=== PATIENT | male | born 1980 | race Caucasian/White ===

== ENCOUNTER 2020-06-06 17:16 | Inpatient (IN) | payer OTHER ==
--- OUTSIDE RECORDS SUMMARY | 2020-06-06 17:22 | XMS ---
:1980 Author Organization [facility] Care Team Providers Name Role Phone Zainab Lewis Unavailable Unavailable Zainab Lewis Unavailable Unavailable Zainab Lewis Unavailable Unavailable Ed King MD Unavailable Unavailable Ed King MD Unavailable Unavailable Ed King MD Unavailable Unavailable Ed King MD Unavailable Unavailable MamFrancine cazares MD Unavailable Unavailable Mama K Unavailable Unavailable Mama K Unavailable Unavailable Mama K Unavailable Unavailable Other Unavailable Unavailable MD Aroldo Unavailable Unavailable MD Aroldo Unavailable Unavailable MD Aroldo Unavailable Unavailable MD Macy Unavailable Unavailable MD Macy Unavailable Unavailable MD Macy Unavailable Unavailable MD Macy Unavailable Unavailable MD Macy Unavailable Unavailable Re-disclosure Warning The records that you are about to access may contain information from federally- assisted alcohol or drug abuse programs. If such information is present, then the following federally mandated warning applies: This information has been disclosed to you from records protected by federal confidentiality rules (42 CFR part 2). The federal rules prohibit you from making any further disclosure of this information unless further disclosure is expressly permitted by the written consent of the person to whom it pertains or as otherwise permitted by 42 CFR part 2. A general authorization for the release of medical or other information is NOT sufficient for this purpose. The Federal rules restrict any use of the information to criminally investigate or prosecute any alcohol or drug abuse patient.The records that you are about to access may contain highly sensitive health information, the redisclosure of which is protected by Article 27-F of the [facility] Public Health law. If you continue you may haveaccess to information: Regarding HIV / AIDS; Provided by facilities licensed or operated by the [facility] Office of Mental Health; or Provided by the [facility] Office for People With Developmental Disabilities. If such information is present, then the following [facility] mandated warning applies: This information has been disclosed to you from confidential records which are protected by state law. State law prohibits you from making any further disclosure of this information without the specific written consent of the person to whom it pertains, or as otherwise permitted by law. Any unauthorized further disclosure in violation of state law may result in a fine or long term sentence or both. A general authorization for the release of medical or other information is NOT sufficient authorization for further disclosure. Encounters Encounter Providers Location Date Indications Data Source(s ) Emergency Attender: Zainab ICU-EMERG 04/29/2020 OD [facility] [place] Isaiahder: 04:40:00 PM Hospi jose e Francine Xavier EDT - MDAttender: Doctor 04/30/2020 Other 05:57:00 AM EDT OD Patient discharged. Emergency Attender: Melia ICU-EMERG 10/26/2019 POSS PINK [facility] [place] 12:14:00 PM EST - EYE Damari e MDAttender: Doctor 10/26/2019 Hospit al Other 12:41:00 PM EST POSS PINK EYE Patient discharged. Emergency Attender: Ed ICU-EMERG 10/05/2019 HEADACHE/BUMPS [facility] [place] MDAttender: 11:28:00 PM EST BEHIND HEAD R ochelle Doctor Other - 10/06/2019 Hospital 02:41:00 AM EST HEADACHE/BUMPS BEHIND HEAD Patient discharged. Emergency Attender: Francine ICU-EMERG 09/04/2019 THOAT PAIN / [facility] [place] MDAttender: 06:51:00 PM EST - COUGH X4DAYS Thelma Chris Cavazos 09/04/2019 Hospital MDAttender: Doctor 08:58:00 PM EST Other THOAT PAIN / COUGH X4DAYS Patient discharged. Medications Medication Brand Start Product Dose Route Administrative Pharmacy [facility] Indications Reaction Description Data Name Date Form Instructions Instructions Source(s) Erythromyci erythr [id number] complet Eryt hromycin [facility] n 0.005 omycin 2019 {darshana} ed , Ophthalmic H ealth MG/MG 0.5% 12:25: System Ophthalmic ophtha 15 PM Ointment lmic EST erythromyci ointme n 0.5% nt ophthalmic ointment For the eye. Insurance Providers Payer name Policy type / Policy ID Covered Covered alliance party's Policy Plan Coverage type alliance party ID relationship to [place] Information sauceda SELF PAY SP INSURANCE COVID19 [facility] Commercial [id number] UNINS TST TRT FND COVID19 [facility] Commercial 1 UNINS TST TRT FND Self Pay Self Pay [id number] Problems, Conditions, and Diagnoses Code Display Name Description Problem Type Effective Data Dates Source(s) TOOK TO MUUCH TOOK TO MUUCH Diagnosis 04/29/2020 [facility] - [facility] w MEDICATION/NAUSEA MEDICATION/NAUSEA 04:40:00 PM [facility] F19.10 Other psychoactive Other psychoactive Diagnosis 0 [facility] - New substance abuse, substance abuse, 04:39:00 PM R ochelle uncomplicated uncomplicated EDT Hospital OD OD Diagnosis 04/29/2020 [facility] - New 04:39:00 PM [facility] Z03.818 Encounter for Encounter for Diagnosis 04/29/2020 [facility] - Ne w observation for observation for 04:39:00 PM Armand helle suspected exposure suspected exposure EDT Hospital to other biological to other biological agents ruled out agent, ruled out H10.9 Unspecified Conjunctivitis Diagnosis 10/26/2019 [facility] - New conjunctivitis 12:14:00 PM [facility] POSS PINK EYE POSS PINK EYE Diagnosis 10/26/2019 [facility]HS - Ne w 12:14:00 PM [facility] G43.909 Migraine, Migraine without Diagnosis 10/05/2019 [facility] - Ne w unspecified, not status migrainosus, 11:28:00 P M Thelma intractable, not intractable EST Hospita l without status migrainosus R59.0 Localized enlarged Localized enlarged Diagnosis 0 [facility] - New lymph nodes lymph nodes 11:28:00 PM [facility] HEADACHE/BUMPS HEADACHE/BUMPS Diagnosis 10/05/2019 [facility] - New BEHIND HEAD BEHIND HEAD 11:28:00 PM [facility] F90.9 Attention-deficit Attention deficit Diagnosis 10/05/2019 [facility] - New hyperactivity hyperactivity 11:28:00 PM [facility] e disorder, disorder (ADHD) EST [facility] unspecified type THOAT PAIN / COUGH THOAT PAIN / COUGH Diagnosis 0 [facility] - New X4DAYS X4DAYS 06:51:00 PM [facility] Surgeries/Procedures Procedure Description Date Indications Data Source(s) Standard chest X-ray 04/29/[address] [facility] Health (procedure) 05:57:00 PM System EDT - 04/29/2020 05:57:00 PM EDT [facility] 05:06:38 PM System EDT - 04/29/2020 05:51:00 PM EDT Results ID Date Data Source [id number] 04/30/2020 06:57:45 AM EDT [facility] Name Value Range Interpretation Description Data Sup porting Code Source(s) Document(s ) Leukocytes [#/volume] 11.9 Above high WBC Count [facility] in Unspecified specimen {10^3_ normal Health by Automated count uL} System Erythrocytes [#/volume] 4.86 Normal (applies RBC Count [facility] in Blood by Automated {10^6_ to non-numeric Hea lth count uL} results) System Hematocrit [Volume 45.2 % Normal (applies Hematocrit [facility] Fraction] of Blood to non-numeric Health results) System Hemoglobin 15.1 Normal (applies Hemoglobin [facility] [Mass/volume] in Blood {gm/dL to non-numeric He alth } results) System Erythrocyte mean 93.0 Normal (applies MCV [facility] corpuscular volume fl to non-numeric Health [Entitic volume] by results) System Automated count ImmaturePlateletFractio 5.90 % Normal (applies Immature [facility] n to non-numeric Platelet Health results) Fraction System Erythrocyte mean 33.4 Normal (applies MCHC [facility] corpuscular hemoglobin {gm/dL to non-numeric He alth concentration } results) System [Mass/volume] by Automated count Erythrocyte 12.4 % Normal (applies RDW-CV [facility] distribution width to non-numeric Health [Entitic volume] by results) System Automated count Erythrocyte mean 31.1 Above high MCH [facility] corpuscular hemoglobin pg normal Health [Entitic mass] by System Automated count Platelets [#/volume] in 190 Normal (applies Platelet [facility] Plasma by Automated {10^3_ to non-numeric Count Healt h count uL} results) System Rare clumping seen. Rare giant platelets . NRBC# 0.00 {10^3_uL} Normal (applies NRBC # [facility] to non-numeric Health System results) Nucleated 0.0 {/100_WBC} Normal (applies NRBC % [facility] erythrocytes to non-numeric Health Syste m [#/volume] in Body results) fluid Neutrophils/100 83.2 % Above high Neutrophil % [facility] leukocytes in normal Health System Blood by Automated count Platelet mean 11.2 fl Normal (applies MPV [facility] volume [Entitic to non-numeric Health Sy stem volume] in Blood results) by Automated count Monocytes/100 4.3 % Normal (applies Monocyte % [facility] leukocytes in to non-numeric Health Syst em Blood results) Neutrophils 9.9 {10^3_uL} Above high Neutrophil # [facility] [#/volume] in Body normal Health Syst em fluid Lymphocytes 11.0 % Below low normal Lymphocyte % [facility] [#/volume] in Health System Blood by Automated count Lymphocyte percent 1.3 {10^3_uL} Normal (applies Lymphocyte # [facility] differential count to non-numeric Health System (procedure) results) Eosinophils 0.06 {10^3_uL} Normal (applies Eosinophil # [facility] [#/volume] in to non-numeric Health Syst em Blood results) Basophils 0.04 {10^3_uL} Normal (applies Basophil # [facility] [#/volume] in to non-numeric Health Syst em Blood by Automated results) count Monocytes 0.5 {10^3_uL} Normal (applies Monocyte # [facility] [#/volume] in to non-numeric Health Syst em Blood by Manual results) count Eosinophils/100 0.5 % Normal (applies Eosinophil % Ulices liz leukocytes in to non-numeric Health Syst em Unspecified results) specimen Basophils/100 0.3 % Normal (applies Basophil % [facility] leukocytes in to non-numeric Health Syst em Unspecified results) specimen by Manual count ImmatureGranulocyt 0.7 % Normal (applies Immature Ulices liz es% to non-numeric Granulocytes % Health Sys tem results) ImmatureGranulocyt 0.08 {10^3_uL} Normal (applies Immature [facility] es# to non-numeric Granulocytes # Health Sys tem results) ID Date Data Source [id number] 04/30/2020 06:57:45 AM EDT [facility] Name Value Range Interpretation Description Data Sup porting Code Source(s) Document(s ) 59109-0 NEGATIVE Testing Normal (applies COVID-19.. [facility] was performed to non-numeric Health Syst em using Nolan ID results) NOW COVID-19, an isothermal nucleic acid amplification technology for the qualitative detection of nucleic acid from the SARS-CoV-2 viral RNA in respiratory specimens. The ID NOW COVID-19 test has been approved by the Food and Drug Administration (FDA) under an Emergency Use Authorization for use by authorized laboratories. Reference Range: NEGATIVE . ID Date Data Source [id number] 04/30/2020 06:57:45 AM EDT [facility] Name Value Range Interpretation Description Data Sup porting Code Source(s) Document(s ) Acetylsalicylate < 4 Normal (applies Salicylate [facility] [Mass/volume] in to non-numeric Level, Serum Healt h Serum or Plasma results) System ID Date Data Source [id number] 04/30/2020 06:57:45 AM EDT [facility] Name Value Range Interpretation Description Data Sup porting Code Source(s) Document(s ) Acetaminophen < 10 Normal (applies Acetaminophen [facility] [Mass/volume] in to non-numeric Level, Serum Healt h Serum or Plasma results) System REFERENCE RANGE: 10-30 Therapeutic >100 Toxic ID Date Data Source [id number] 04/30/2020 06:57:45 AM EDT [facility] Name Value Range Interpretation Description Data Sup porting Code Source(s) Document(s ) Magnesium 1.5 Normal (applies Magnesium, [facility] [Mass/volume] {mEq/L} to non-numeric Serum Health Syst em in Serum or results) Plasma ID Date Data Source [id number] 04/30/2020 06:57:45 AM EDT [facility] Name Value Range Interpretation Description Data Sup porting Code Source(s) Document(s ) AlcoholE none detected Normal (applies Alcohol Ethyl, Ulices liz thyl,Blo Reference to non-numeric Blood Health System od Range: None results) Detected ID Date Data Source [id number] 04/30/2020 06:57:45 AM EDT [facility] System Name Value Range Interpretation Description Data Sup porting Code Source(s) Document(s ) Potassium 3.7 Normal (applies Potassium, [facility] [Mass/volume] in mmol/L to non-numeric Serum Health Serum or Plasma results) System Chloride 104 Normal (applies Chloride, [facility] [Moles/volume] in mmol/L to non-numeric Serum Health Serum or Plasma results) System Sodium 139 Normal (applies Sodium, Serum [facility] [Moles/volume] in mmol/L to non-numeric Health Serum or Plasma results) System Glucose 108 Normal (applies Glucose, [facility] [Mass/volume] in mg/dL to non-numeric Serum Health Serum or Plasma results) System TotalProtein 7.1 Normal (applies Total Protein [facility] mg/dl to non-numeric Health results) System Carbon dioxide, 26.6 Normal (applies CO2, Serum [facility] total mmol/L to non-numeric Health [Moles/volume] in results) System Serum or Plasma Alkaline 70 Normal (applies Alkaline [facility] phosphatase {IU/L} to non-numeric Phosphatase, Health isoenzymes results) Serum System [Enzymatic activity/volume] in Serum or Plasma by Heat stability Creatinine 0.53 Normal (applies Creatinine, [facility] [Mass/volume] in mg/dl to non-numeric Serum Health Serum or Plasma results) System Urea nitrogen 13 Normal (applies Blood Urea [facility] [Mass/volume] in mg/dl to non-numeric Nitrogen, Health Serum or Plasma results) Serum System Bilirubin direct 0.5 Normal (applies Bilirubin, [facility] and total panel mg/dl to non-numeric Serum Total Health [Mass/volume] - results) System Serum or Plasma Albumin 3.7 Normal (applies Albumin, [facility] [Mass/volume] in {gm/dl} to non-numeric Serum Health Serum or Plasma results) System Aspartate 78 Above high Aspartate [facility] aminotransferase {IU/L} normal Transaminase, Health [Enzymatic Serum System activity/volume] in Serum or Plasma by With P-5'-P DirectBilirubin 0.1 Normal (applies Direct [facility] mg/dl to non-numeric Bilirubin Health results) System I.Phosphorus 1.6 Below low normal I. Phosphorus [facility] mg/dl Health System Calcium 8.9 Normal (applies Calcium, [facility] [Mass/volume] in mg/dl to non-numeric Total Serum Health Serum or Plasma results) System A/GRatio 1.09 Normal (applies A/G Ratio [facility] to non-numeric Health results) System Alanine 105 Above high Alanine [facility] aminotransferase {IU/L} normal Aminotransfer Health [Enzymatic ase, Serum System activity/volume] in Serum or Plasma Glomerular > 90 Normal (applies GFR [facility] filtration to non-numeric Health rate/1.73 sq results) System M.predicted [Volume Rate/Area] in Serum or Plasma by Creatinine-based formula (CKD-EPI) eGFR will provide clinicians with a more accurate indicator of renal function then the serum creatinine. The eGFR is automa tically calculated from an empiric formula (endorsed by the National Kidney Foundat ion) which incorporates age, sex, and race.Clinicians may notice surprisingly low GFR's with serum creatinine valueswithin normal range- particularly in elderly wo men (with low muscle mass).In the hospital setting, the eGFR should add an element of safety in drug dosing, in assessing the risk of IV contrast administration, and in assessing vascular risk.The NKF staging system is as follows:Normal: eGFR >90 with no kidney markersStage 1: eGFR >90 with kidney markers*Stage 2: eGFR 60- 89Stage 3: eGFR 30-59Stage 4: eGFR 15-29Stage 5: eGFR <15 (usually requir ing dialysis)*Markers include: Proteinuria, Hematuria, abnormal imaging-studies, or other blood or urine test abnormalities Urate [Mass/volume] 4.6 mg/dl Normal (applies to Uric Acid, [facility] in Serum or Plasma non-numeric Serum System results) Anion gap in Serum or 8.40 mmol/L Normal (applies to Anion Gap [facility] Plasma non-numeric System results) ID Date Data Source [id number] 04/30/2020 06:57:45 AM EDT [facility] System Name Value Range Interpretation Description Data Sup porting Code Source(s) Document(s ) Appearance of CLEAR Normal (applies Urine [facility] Urine to non-numeric Appearance Health results) System Color Yellow Normal (applies Color [facility] to non-numeric Health results) System Specific gravity 1.017 Normal (applies Urine Specific [facility] of Urine to non-numeric [place] [facility] results) System Protein NEG Normal (applies Protein [facility] [Mass/volume] in to non-numeric Health Serum or Plasma results) System pH.. 8.0 Normal (applies pH.. [facility] {pH_unit to non-numeric Health s} results) System Glucose,UA NEG Normal (applies Glucose, UA [facility] to non-numeric Health results) System BilirubinUrine NEG Normal (applies Bilirubin [facility] to non-numeric Urine Health results) System Urobilinogen < 2.0 Normal (applies Urobilinogen [facility] [Mass/volume] in to non-numeric UA Health Urine results) System Reference Range: Negative or <=2.0 Ketones TR Abnormal (applies Ketones UA [facility] [Mass/volume] in to non-numeric Health S ystem Urine results) Leukocyte esterase NEG Normal (applies Leukocyte Ilana ase [facility] [Units/volume] in to non-numeric Concentration Hea lt System Urine results) Nitrate+Nitrite Negative Normal (applies Nitrite [facility] [Mass/volume] in to non-numeric Health S ystem Unspecified specimen results) Leukocytes 1 {/HPF} Normal (applies White Blood Cells Ulices liz [#/volume] in to non-numeric Health Syst em Unspecified specimen results) by Automated count RedBloodCells < 1 /HPF Normal (applies Red Blood Cells [facility] to non-numeric Health System results) Mucus RARE Normal (applies Mucus [facility] to non-numeric Health System results) UrineBlood NEG Normal (applies Urine Blood [facility] to non-numeric Health System results) ID Date Data Source [id number] 04/30/2020 06:57:45 AM EDT [facility] Name Value Range Interpretation Description Data Sup porting Code Source(s) Document(s ) Barbiturates Negative Normal (applies Barbiturate [facility] [Mass/volume] to non-numeric Screen, Urine Health in Urine by results) System Screen method Cut-off = 200 ng/mL Amphetamine Negative Normal (applies to Amphetamine Level, [facility] [Mass/volume] in non-numeric Urine Health Syst em Urine results) Cut-off = 1000 ng/mL Cocaine Negative Normal (applies Cocaine [facility] metabolites.other to non-numeric Metabolite Health System [Mass/volume] in Urine results) Screen, Urine Cut-off = 300 ng/mL Benzodiazepines Negative Normal (applies Benzodiazepines, M [facility] [Mass/volume] in to non-numeric Urine Health S ystem Urine results) Cut-off = 200 ng/mL Methadone Negative Normal (applies to Methadone Level, [facility] [Mass/volume] in non-numeric Urine System Urine results) Cut-off = 300 ng/mL [id number],Urine Negative Normal (applies to Opiate 300, [facility]) Urine System Cut-off = 300 ng/mL Phencyclidine Negative Normal (applies Phencyclidine, Urine [facility] [Mass/volume] in to non-numeric Health S ystem Urine results) Cut-off = 25 ng/mL Cannabinoid(THC) Negative Normal (applies to Cannabinoid (THC) [facility] non-numeric System results) Cutt-off = 50These results are for medic al treatment only. The positive findings are unconfirmed. Request confirmatory/quanti tative test if needed. ID Date Data Source [id number] 04/29/2020 07:13:00 PM EDT [facility] Name Value Range Interpretation Code Description Data Sully rce(s) Supporting Document(s ) COVID-19.. [facility] This lab was ordered by [facility] and reported by [facility]. ID Date Data Source [id number] 04/29/2020 05:57:00 PM EDT [facility] XR Chest 1 [id number] 17:44Indicatio n: Chest discomfort.Single view of the chest.Comparison: None available.FINDING S:TUBES AND LINES: None.LUNG VOLUMES:Normal.OPACITIES/CONSOLIDATION: No focal disease. No effusion.PNEUMOTHORAX: None.CARDIOMEDIASTINALSILHOUETTE: Normal .PULMONARY VESSELS: Normal.MASS OR NODULE: None.BONES: No acute findings.OTHER: Nos ignificant findings.IMPRESSION: No radiographic evidence of acute disease i n thechest.Electronically Signed by Mathew Lucio DO on 0 at 1809 Reported and signed by: Kulwinder Diaz Physician ServicesG[facility] DR[facility] MATHEW LUCIO - [place] - [phone] Signed:Shant Lucio, [id number] at 18:07 [phone], Service support [phone], [phone] Name Value Range Interpretation Code Description Data Sully rce(s) Supporting Document(s ) ID Date Data Source [id number] 12/22/2019 10:56:00 PM EDT [facility] System Name Value Range Interpretation Code Description Data Sully rce(s) Supporting Document(s ) SARS-CoV-2 [facility] RNA Resp Health System Ql MARILEE+probe This lab was ordered by [facility] and reported by [facility]. Procedure Vital Signs ID Date Data Source UNK Name Value Range Interpretation Code Description Data Source(s) Diastolic blood 83 mm[Hg] 0 - 999 Normal (applies to 83 mm[Hg] [facility] pressure non-numeric results) [facility] Systolic blood 115 mm[Hg] 0 - 999 Normal (applies to 115 mm[Hg] Mo [facility] pressure non-numeric results) [facility] Oxygen saturation 100 % 0 - 999 Normal (applies to 100 % [facility] in Arterial blood non-numeric results) Health System by Pulse oximetry Respiratory rate 16 0 - 999 Normal (applies to 16 [facility] non-numeric results) [facility] Heart rate 65 0 - 999 Normal (applies to 65 [facility] non-numeric results) [facility] Body surface area 2 m2 2 m2 [facility] Derived from Health Syste m formula Body mass index 21.8 kg/m2 21.8 kg/m2 [facility] (BMI) [Ratio] Health Syst em Body weight 77.11 kg 77.11 kg [facility] Body height 187.96 cm 187.96 cm [facility] Body temperature 99.4 [degF] 0 - 200 Normal (applies to 99.4 [degF ] [facility] non-numeric results) [facility] th System Body temperature 37.4 Zo 0 - 99.9 Normal (applies to 37.4 Zo [facility] non-numeric results) [facility] Body surface area 2 m2 2 m2 [facility] Derived from Health Syste m formula Body mass index 25.7 kg/m2 25.7 kg/m2 [facility] (BMI) [Ratio] Health Syst em Body weight 86.18 kg 86.18 kg [facility] Body height 182.88 cm 182.88 cm [facility] Body temperature 98 [degF] 0 - 200 Normal (applies to 98 [degF] [facility] non-numeric results) [facility] Body temperature 36.6 Zo 0 - 99.9 Normal (applies to 36.6 Zo [facility] non-numeric results) [facility] Diastolic blood 70 mm[Hg] 0 - 999 Normal (applies to 70 mm[Hg] M [facility] pressure non-numeric results) [facility] Systolic blood 122 mm[Hg] 0 - 999 Normal (applies to 122 mm[Hg] Mo [facility] pressure non-numeric results) [facility] Oxygen saturation 99 % 0 - 999 Normal (applies to 99 % [facility] in Arterial blood non-numeric results) Health System by Pulse oximetry Respiratory rate 18 0 - 999 Above high normal [facility] 70 0 - 999 Normal (applies to 70 [facility] non-numeric results) [facility] Body temperature 98 [degF] 0 - 200 Normal (applies to 98 [degF] [facility] non-numeric results) [facility] Body temperature 36.6 Zo 0 - 99.9 Normal (applies to 36.6 Zo [facility] non-numeric results) [facility] Diastolic blood 70 mm[Hg] 0 - 999 Normal (applies to 70 mm[Hg] M [facility] pressure non-numeric results) [facility] System Systolic blood 132 mm[Hg] 0 - 999 Normal (applies to 132 mm[Hg] [facility] pressure non-numeric results) [facility] Oxygen saturation 99 % 0 - 999 Normal (applies to 99 % [facility] in Arterial blood non-numeric results) [facility] by Pulse oximetry Respiratory rate 17 0 - 999 Normal (applies to 17 [facility] non-numeric results) [facility] Heart rate 90 0 - 999 Normal (applies to 90 [facility] non-numeric results) [facility] Body surface area 2.1 m2 2.1 m2 [facility] Derived from Health Syste m formula Body mass index 24.3 kg/m2 24.3 kg/m2 [facility] (BMI) [Ratio] [facility] Body weight 86.18 kg 86.18 kg [facility] Body height 187.96 cm 187.96 cm [facility] Body temperature 98.5 [degF] 0 - 200 Normal (applies to 98.5 [degF ] [facility] non-numeric results) [facility] Body temperature 36.9 Zo 0 - 99.9 Normal (applies to 36.9 Zo [facility] non-numeric results) [facility] Diastolic blood 86 mm[Hg] 0 - 999 Above high normal 86 mm[Hg] [facility] Systolic blood 124 mm[Hg] 0 - 999 Normal (applies to 124 mm[Hg] [facility] Oxygen saturation 99 % 0 - 999 Normal (applies to 99 % [facility] in Arterial blood non-numeric results) [facility] by Pulse oximetry Respiratory rate 18 0 - 999 [facility] - 999 Normal (applies to 73 [facility] non-numeric results) [facility] Body surface area 2.1 m2 2.1 m2 [facility] ore Derived from Health [facility] m formula Body mass index 24.3 kg/m2 24.3 kg[facility]m2 [facility] Body weight 86.18 kg 86.18 kg [facility] Body height 187.96 cm 187.96 cm [facility] Patient Treatment Plan of Care Planned Activity Planned Date Details Description Data Source (s) Erythromycin 0.005 MG/MG 10/26/2019 12:25:15 [facility] Ophthalmic Ointment EST System
--- NOTE | 2020-06-06 19:30 | BHS.RME ---
Substance Use & Tx History - Substance Use History Alcohol Substance amount: 5 x 40oz bottles of beer Frequency of use: Daily Substance route: Oral Date of Last Use: 06/06/20 Heroin Substance amount: 10 bags Frequency of use: Daily Substance route: Injection (ex: intravenous or skin popping) Date of Last Use: 06/06/20 - Last Treatment Date of last treatment: Denies Physical/Psych/Mental Status - Behavior Eye Contact: Normal - Cooperativeness Cooperativeness: Cooperative - Thinking Thought Processes: Logical Thought content: Future oriented - Physical Health Problems Is patient presently having any pain?: Yes (generalized aches and pain) Does patient presently have any injuries (include location): No Does patient currently have a fever: No Is patient : No COWS - Scale Resting Pulse: 1= [place] 81-100 Sweatin= Chills/Flushing Restless Observation: 0= Sits Still Pupil Size: 1= Pupils >than Normal Bone or Joint Aches: 4=Acute Joint/Muscle Pain Runny Nose/ Eye Tearin= Runny Nose/Eyes GI Upset > 30mins: 2= Nausea/Diarrhea (nausea, no diarrhea) Tremor Observation: 4= Gross Tremor/Twitching Yawning Observation: 1= 1-2x During Session Anxiety or Irritability: 2=Irritable/Anxious Goose Flesh Skin: 3=Piloerection COWS Score: 21 CIWA Nausea/Vomitin Muscle Tremors: 4-Moderate,w/Arms Extend Anxiety: 4-Mod. Anxious/Guarded Agitation: 3 Paroxysmal Sweats: 2 Orientation: 1-Uncertain about Date Tacttile Disturbances: 0-None Auditory Disturbances: 0-None Visual Disturbances: 0-None Headache: 4-Moderately Severe CIWA-Ar Total Score: 20 Treatment Recommendation - Level of Care Level of Care: Opioid Treatment Program (OTP) (Heroin and alcohol detox)
[2020-06-06 19:54] VITALS: BMI 21.8
[2020-06-06] MEDS ORDERED: BISMUTH SUBSALICYLATE 524 MG/30 ML UD PO PRN (21:23)
[2020-06-06] MEDS ORDERED: IBUPROFEN 400 MG TABLET (FP) PO PRN (21:23)
[2020-06-06] MEDS ORDERED: cloNIDine HCL 0.1 MG TABLET PO PRN (21:23)
[2020-06-06] MEDS ORDERED: ACETAMINOPHEN 325 MG TABLET (FP) PO PRN ×2 (21:23)
[2020-06-06] MEDS ORDERED: ONDANSETRON *ODT* 4 MG TABLET SL PRN (21:23)
[2020-06-06] MEDS ORDERED: METHADONE HCL 10 MG TABLET (FOR DETOX USE ONLY) PO ONE (21:23)
[2020-06-06] MEDS ORDERED: MAG HYDROX/AL HYDROX/SIMETH 30 ML UNIT-DOSE CUP PO PRN (21:23)
[2020-06-06] MEDS ORDERED: MAGNESIUM HYDROX 2400MG/30ML ORAL SUSPENSION 30 ML CUP PO PRN (21:23)
[2020-06-06] MEDS ORDERED: MENTHOL/PHENOL 1 EACH UD MM PRN (21:23)
[2020-06-06] MEDS ORDERED: MAGNESIUM CITRATE 300 ML BOTTLE PO PRN (21:23)
--- NOTE | 2020-06-06 21:30 | HP ---
COWS - Scale Resting Pulse: 1= [place] 81-100 Sweatin= Chills/Flushing Restless Observation: 0= Sits Still Pupil Size: 1= Pupils >than Normal Bone or Joint Aches: 4=Acute Joint/Muscle Pain Runny Nose/ Eye Tearin= Runny Nose/Eyes GI Upset > 30mins: 2= Nausea/Diarrhea (nausea, no diarrhea) Tremor Observation: 4= Gross Tremor/Twitching Yawning Observation: 1= 1-2x During Session Anxiety or Irritability: 2=Irritable/Anxious Goose Flesh Skin: 3=Piloerection COWS Score: 21 CIWA Score Nausea/Vomitin Muscle Tremors: 4-Moderate,w/Arms Extend Anxiety: 4-Mod. Anxious/Guarded Agitation: 3 Paroxysmal Sweats: 2 Orientation: 1-Uncertain about Date Tacttile Disturbances: 0-None Auditory Disturbances: 0-None Visual Disturbances: 0-None Headache: 4-Moderately Severe CIWA-Ar Total Score: 20 - Admission Criteria OASAS Guidelines: Admission for Medically Managed Detox: Requires at least one of the followin. CIWA greater than 12 2. Seizures within the past 24 hours 3. Delirium tremens within the past 24 hours 4. Hallucinations within the past 24 hours 5. Acute intervention needed for co occurring medical disorder 6. Acute intervention needed for co occurring psychiatric disorder 7. Severe withdrawal that cannot be handled at a lower level of care (continued vomiting, continued diarrhea, abnormal vital signs) requiring intravenous medication and/or fluids 8. Admitting History and Physical - Admission Chief Complaint: I'm getting sick. History of Present Illness: Mr. Bales is a 40 y/o male with past medical history of Hep c, alcohol, Opioid , Xanax use disorder presents to [facility] for alcohol and opioid detox.Has been using Fentanyl 10 bags (IV) for a year and a halt now, last use was this morning. Also using heroin 10 bags (IV), last use was a couple of days ago.Also admits to drinking 5-40oz beer daily, admits to blackout, seizures and eyeopener. History Source: Patient Limitations to Obtaining History: No Limitations - Past Medical History Hepatobiliary: Yes: Hepatitis C Psych: Yes: Addictions, Anxiety, Depression (ADHD) - Smoking History Smoking history: Current every day smoker Have you smoked in the past 12 months: Yes Aproximately how many cigarettes per day: 20 - Alcohol/Substance Use Hx Alcohol Use: Yes History of Substance Use: reports: Cocaine, Heroin - Social History Usual Living Arrangement: Yes: Alone ADL: Independent History of Recent Travel: No Admission ROS [facility] - [facility] Allergies/Adverse Reactions: Allergies Allergy/AdvReac Type Severity Reaction Status Date / Time No Known Allergies Allergy Verified 06/06/20 20:41 History of Present Illness: Mr. Bales is a 40 y/o male with past medical history of Hep c, alcohol, Opioid , Xanax use disorder presents to [facility] for alcohol and opioid detox.Has been using Fentanyl 10 bags (IV) for a year and a halt now, last use was this morning. Also using heroin 10 bags (IV), last use was a couple of days ago.Also admits to drinking 5-40oz beer daily, admits to blackout, seizures and eyeopener. - Review of Systems Constitutional: Chills, Night Sweats EENT: reports: No Symptoms Reported, Tearing Respiratory: reports: No Symptoms reported Cardiac: reports: No Symptoms Reported GI: reports: No Symptoms Reported : reports: No Symptoms Reported Musculoskeletal: reports: Joint Pain Integumentary: reports: No Symptoms Reported Neuro: reports: No Symptoms reported, Tremors Endocrine: reports: No Symptoms Reported Hematology: reports: No Symptoms Reported Psychiatric: reports: No Sypmtoms Reported, Judgement Intact, Anxious Other Systems: Reviewed and Negative Patient History - Patient Medical History Hx Asthma: No Hx Chronic Obstructive Pulmonary Disease (COPD): No Hx Cardiac Disorders: No Hx Hypertension: No Hx Seizures: Yes (Alcohol related, last 2mths ago) Hx Diabetes: No Hx Gastrointestinal Disorders: No Hx Liver Disease: Yes (Hepatitis c) Hx Genitourinary Disorders: No Hx Sexually Transmitted Disorders: No Hx Renal Disease (ESRD): No Hx Depression: Yes Hx Suicide Attempt: No Hx Schizophrenia: No - Patient Surgical History Past Surgical History: No Hx Neurologic Surgery: No Hx Cataract Extraction: No Hx Cardiac Surgery: No Hx Lung Surgery: No Hx Breast Surgery: No Hx Breast Biopsy: No Hx Abdominal Surgery: No Hx Appendectomy: Yes Hx Cholecystectomy: No Hx Genitourinary Surgery: No Hx Section: No Hx Orthopedic Surgery: Yes (RT knee) Anesthesia Reaction: No - PPD History Previous Implant?: No Implanted On Prior [facility] Admission?: No - Reproductive History Patient : No - Smoking Cessation Smoking history: Current every day smoker Have you smoked in the past 12 months: Yes Aproximately how many cigarettes per day: 20 Hx Chewing Tobacco Use: No Initiated information on smoking cessation: No Admission Physical Exam [facility] - Vital Signs Vital Signs: Vital Signs - 24 hr 06/06/20 19:52 Temperature 97.6 F Pulse Rate 100 H Respiratory 18 Rate Blood Pressure 142/81 - Physical General Appearance: Yes: Appropriately Dressed, Tremorous, Anxious HEENTM: Yes: Within Normal Limits, EOMI Respiratory: Yes: Within Normal Limits, Chest Non-Tender, No Respiratory Distress, No Accessory Muscle Use Neck: Yes: Within Normal Limits Breast: Yes: Breast Exam Deferred Cardiology: Yes: Within Normal Limits, Regular Rhythm, Regular Rate, S1, S2 Abdominal: Yes: Within Normal Limits, Normal Bowel Sounds, Flat, Soft Genitourinary: Yes: Within Normal Limits Back: Yes: Within Normal Limits, Normal Inspection Musculoskeletal: Yes: Within Normal Limits, Gait Steady Extremities: Yes: Within Normal Limits, Normal Capillary Refill Neurological: Yes: Within Normal Limits, spring upholsterer II-XII NML intact Integumentary: Yes: Within Normal Limits Lymphatic: Yes: Within Normal Limits - Diagnostic (1) Opioid dependence with withdrawal Current Visit: Yes Status: Acute (2) Alcohol dependence with withdrawal Current Visit: Yes Status: Acute (3) Nicotine dependence Current Visit: Yes Status: Chronic Cleared for Admission [facility] - Detox or Rehab Detox Regimen/Protocol: Methadone/Librium Claeared for Rehab Admission: No Breathalyzer - Breathalyzer Breathalyzer: 0 Urine Drug Screen - Test Device Lot number: [id number] Expiration date: 03/27/22 - Control Is test valid?: Yes - Results Drug screen NEGATIVE: No Urine drug screen results: THC-Marijuana, JONATAN-Cocaine, FEN-Fentanyl, BZO- Benzodiazepines Inpatient Rehab Admission - Rehab Decision to Admit Inpatient rehab admission?: No
--- OUTSIDE RECORDS SUMMARY | 2020-06-06 21:42 | XMS ---
:1980 Author Organization [facility] Care Team Providers Name Role Phone Zainab eLwis Unavailable Unavailable Zainab Lewis Unavailable Unavailable Zainab [...] is protected by Article 27-F of the [facility] Public Health law. If you continue you may haveaccess to information: Regarding HIV / AIDS; Provided by facilities licensed or operated by the [facility] Office of Mental Health; or Provided by the [facility] Office for People With Developmental Disabilities. If such information is present, then the following [facility] mandated warning applies: This information has been [...] Attender: Zainab ICU-EMERG 04/29/2020 OD [facility] - [place] Isaiahder: 04:40:00 PM Hospi jose e Francine [...] Brand Start Product Dose Route Administrative Pharmacy [facility] Indications Reaction Description Data Name Date Form Instructions Instructions Source(s) Erythromyci erythr [id number] complet Eryt hromycin [facility] n 0.005 omycin 2019 {darshana} ed , Ophthalmic H ealth MG/MG 0.5% 12:25: System Ophthalmic ophtha 15 PM Ointment lmic EST erythromyci ointme n 0.5% nt ophthalmic ointment For the eye. Insurance Providers Payer name Policy type / Policy ID Covered Covered constitution party's Policy Plan Coverage type constitution party ID relationship to [place] Information sauceda SELF PAY SP INSURANCE COVID19 [facility] Commercial [id number] UNINS TST TRT FND COVID19 [facility] Commercial 1 UNINS TST TRT FND Self Pay Self Pay [id number] Problems, Conditions, and Diagnoses Code Display Name Description Problem Type Effective Data Dates Source(s) TOOK TO MUUCH TOOK TO MUUCH Diagnosis 04/29/2020 [facility] - Ne w MEDICATION/NAUSEA MEDICATION/NAUSEA 04:40:[address] [facility] F19.10 Other psychoactive Other psychoactive Diagnosis 0 [facility] - New substance abuse, substance abuse, 04:39:00 PM R ochelle uncomplicated uncomplicated EDT Hospital OD OD Diagnosis 04/29/2020 [facility] - New 04:39:[address] [facility] Z03.818 Encounter for Encounter for Diagnosis 04/29/2020 [facility] - Ne w observation for observation for 04:39:00 PM Armand helle suspected exposure suspected exposure EDT Hospital to other biological to other biological agents ruled out agent, ruled out H10.9 Unspecified Conjunctivitis Diagnosis 10/26/2019 [facility] - New conjunctivitis 12:14:00 PM [facility] POSS PINK EYE POSS PINK EYE Diagnosis 10/26/2019 [facility] - Ne w 12:14:00 PM [facility] G43.909 Migraine, Migraine without Diagnosis 10/05/2019 [facility] - Ne w unspecified, not status migrainosus, 11:28:00 P M Thelma intractable, not intractable EST Hospita l without status migrainosus R59.0 Localized enlarged Localized enlarged Diagnosis 0 [facility] - New lymph nodes lymph nodes 11:28:00 PM [facility] HEADACHE/BUMPS HEADACHE/BUMPS Diagnosis 10/05/2019 [facility] - New BEHIND HEAD BEHIND HEAD 11:28:00 PM [facility] F90.9 Attention-deficit Attention deficit Diagnosis 10/05/2019 [facility] - New hyperactivity hyperactivity 11:28:00 PM [facility] e disorder, disorder (ADHD) EST [facility] unspecified type THOAT PAIN / COUGH THOAT PAIN / COUGH Diagnosis 0 [facility] - New X4DAYS X4DAYS 06:51:00 PM [facility] Surgeries/Procedures Procedure Description Date Indications Data Source(s) Standard chest X-ray 04/29/2020 [facility] Health (procedure) 05:57:00 PM System EDT - 04/29/2020 05:57:00 PM EDT [facility] 05:06:38 PM System EDT - 04/29/2020 05:51:00 PM EDT Results ID Date Data Source [id number] 04/30/2020 06:57:45 AM EDT [facility] [...] Sys tem results) ID Date Data Source [id number] 04/30/2020 06:57:45 AM EDT [facility] Name Value Range Interpretation Description Data Sup porting Code Source(s) Document(s ) 07014-7 NEGATIVE Testing Normal (applies COVID-19.. [facility] [...] Range: NEGATIVE . ID Date Data Source [id number] 04/30/2020 06:57:45 AM EDT [facility] Name Value Range Interpretation Description Data Sup porting Code Source(s) Document(s ) Acetylsalicylate < 4 Normal (applies Salicylate [facility] [Mass/volume] in to non-numeric Level, Serum Healt h Serum or Plasma results) System ID Date Data Source [id number] 04/30/2020 06:57:45 AM EDT [facility] Name Value Range Interpretation Description Data Sup porting Code Source(s) Document(s ) Acetaminophen < 10 Normal (applies Acetaminophen [facility] [Mass/volume] in to non-numeric Level, Serum Healt [facility] Serum or Plasma results) System REFERENCE RANGE: 10-30 Therapeutic >100 Toxic ID Date Data Source [id number] 04/30/2020 06:57:45 AM EDT [facility] Name Value Range Interpretation Description Data Sup porting Code Source(s) Document(s ) Magnesium 1.5 Normal (applies Magnesium, [facility] [Mass/volume] {mEq/L} to non-numeric Serum Health Syst em in Serum or results) Plasma ID Date Data Source [id number] 04/30/2020 06:57:45 AM EDT [facility] Name Value Range Interpretation Description Data Sup porting Code Source(s) Document(s ) AlcoholE none detected Normal (applies Alcohol Ethyl, Ulic[facility] liz thyl,Blo Reference to non-numeric Blood Health System od Range: None results) Detected ID Date Data Source [id number] 04/30/2020 06:57:45 AM EDT [facility] He jake [...] non-numeric System results) ID Date Data Source [id number] 04/30/2020 06:57:45 AM EDT [facility] System Name Value Range Interpretation Description Data Sup porting Code Source(s) Document(s ) Appearance of CLEAR Normal (applies Urine [facility] Urine to non-numeric Appearance Health results) System Color Yellow Normal (applies Color [facility] to non-numeric Health results) System Specific gravity 1.017 Normal (applies Urine Specific [facility] of Urine to non-numeric [facility] results) System Protein NEG Normal (applies [...] Health System results) ID Date Data Source [id number] 04/30/2020 06:57:45 AM EDT [facility] [...] Negative Normal (applies to Methadone Level, [facility] [Mass/volume] in non-numeric Urine System Urine results) Cut-off = 300 ng/mL [id number],Urine Negative Normal (applies to Opiate 300, [facility] non-[facility] results) Urine System Cut-off = 300 ng/mL Phencyclidine Negative Normal (applies Phencyclidine, Urine [facility] [Mass/volume] in to non-numeric Health S ystem Urine results) Cut-off = 25 ng/mL Cannabinoid(THC) Negative Normal (applies to Cannabinoid (THC) [facility] non-numeric System results) Cutt-off = 50These results are for medic al treatment only. The positive findings are unconfirmed. Request confirmatory/quanti tative test if needed. ID Date Data Source [id number] 04/29/2020 07:13:00 PM EDT [facility] Name Value Range Interpretation Code Description Data Sully rce(s) Supporting Document(s ) COVID-19.. [facility] This lab was ordered by [facility] and reported by [facility]. ID Date Data Source [id number] 04/29/2020 05:57:00 PM EDT [facility] XR Chest 1 [id number] 17:44Indicatio n: Chest discomfort.Single view of the chest.Comparison: None available.FINDING S:TUBES AND LINES: None.LUNG VOLUMES:Normal.OPACITIES/CONSOLIDATION: No focal disease. No effusion.PNEUMOTHORAX: None.CARDIOMEDIASTINALSILHOUETTE: Normal .PULMONARY VESSELS: Normal.MASS OR NODULE: None.BONES: No acute findings.OTHER: Nos ignificant findings.IMPRESSION: No radiographic evidence of acute disease i n thechest.Electronically Signed by Mathew Lucio DO on 0 at 1809 Reported and signed by: Kulwinder Diaz Physician ServicesTEN[facility] MATHEW LUCIO - [place] - [phone] Signed:Shant Lucio, [id number] at 18:07 [phone], Service support [phone], [phone] Name Value Range Interpretation Code Description Data Sully rce(s) Supporting Document(s ) ID Date Data Source [id number] 12/22/2019 10:56:00 PM EDT [facility] Name Value Range Interpretation Code Description Data Sully rce(s) Supporting Document(s ) SARS-CoV-2 [facility] RNA Resp Health System Ql MARILEE+probe This lab was ordered by [facility] and reported by [facility]. Procedure Vital Signs ID Date Data Source UNK Name Value Range Interpretation Code Description Data Source(s) Diastolic blood 83 mm[Hg] 0 - 999 Normal (applies to 83 mm[Hg] [facility] pressure non-numeric results) [facility] System Systolic blood 115 mm[Hg] 0 - 999 Normal (applies to 115 mm[Hg] [facility] pressure non-numeric results) [facility] System Oxygen saturation 100 % 0 - 999 Normal (applies to 100 % [facility] in Arterial blood non-numeric results) Health System by Pulse oximetry Respiratory rate 16 0 - 999 Normal (applies to 16 [facility] non-numeric results) [facility] System Heart rate 65 0 - 999 Normal (applies to 65 [facility] non-numeric results) [facility] System Body surface area 2 m2 2 m2 [facility] Derived from Health Syste m formula Body mass index 21.8 kg/m2 21.8 kg/m2 [facility] (BMI) [Ratio] Health Syst em Body weight 77.11 kg 77.11 kg [facility] Body height 187.96 cm 187.96 cm [facility] System Body temperature 99.4 [degF] 0 - 200 Normal (applies to 99.4 [degF ] [facility] non-numeric results) [facility] th System Body temperature 37.4 Zo 0 - 99.9 Normal (applies to 37.4 Zo [facility] non-numeric results) [facility] System Body surface area 2 m2 2 m2 [facility] Derived from [facility] Sy[facility] m formula Body mass index 25.7 kg/m2 25.7 kg/m2 [facility] (BMI) [Ratio] [facility] Sy[facility] em Body weight 86.18 kg 86.18 kg [facility] Body height 182.88 cm 182.88 cm [facility] Body temperature 98 [degF] 0 - 200 Normal (applies to 98 [degF] [facility] non-numeric results) [facility] System Body temperature 36.6 Zo 0 - 99.9 Normal (applies to 36.6 Zo [facility] non-numeric results) [facility] System Diastolic blood 70 mm[Hg] 0 - 999 Normal (applies to 70 mm[Hg] [facility] pressure non-numeric results) [facility] System Systolic blood 122 mm[Hg] 0 - 999 Normal (applies to 122 mm[Hg] [facility] pressure non-numeric results) [facility] System Oxygen saturation 99 % 0 - 999 Normal (applies to 99 % [facility] in Arterial blood non-numeric results) Health System by Pulse oximetry Respiratory rate 18 0 - 999 Above high normal [facility] 70 0 - 999 Normal (applies to 70 [facility] non-numeric results) [facility] System Body temperature 98 [degF] 0 - 200 Normal (applies to 98 [degF] [facility] non-numeric results) [facility] System Body temperature 36.6 Zo 0 - 99.9 Normal (applies to 36.6 Zo [facility] non-numeric results) [facility] System Diastolic blood 70 mm[Hg] 0 - 999 Normal (applies to 70 mm[Hg] [facility] pressure non-numeric results) [facility] System Systolic blood 132 mm[Hg] 0 - 999 Normal (applies to 132 mm[Hg] [facility] pressure non-numeric results) [facility] System Oxygen saturation 99 % 0 - 999 Normal (applies to 99 % [facility] in Arterial blood non-numeric results) Health System by Pulse oximetry Respiratory rate 17 0 - 999 Normal (applies to 17 [facility] non-numeric results) [facility] System Heart rate 90 0 - 999 Normal (applies to 90 [facility] non-numeric results) [facility] System Body surface area 2.1 m2 2.1 m2 [facility] Derived from Health Syste m formula Body mass index 24.3 kg/m2 24.3 kg/m2 [facility] (BMI) [Ratio] [facility] Body weight 86.18 kg 86.18 kg [facility] Body height 187.96 cm 187.96 cm [facility] Body temperature 98.5 [degF] 0 - 200 Normal (applies to 98.5 [degF ] [facility] non-numeric results) [facility] Body temperature 36.9 Zo 0 - 99.9 Normal (applies to 36.9 Zo [facility] non-numeric results) [facility] System Diastolic blood 86 mm[Hg] 0 - 999 Above high normal 86 mm[Hg] [facility] System Systolic blood 124 mm[Hg] 0 - 999 Normal (applies to 124 mm[Hg] [facility] pressure non-numeric results) [facility] Oxygen saturation 99 % 0 - 999 Normal (applies to 99 % [facility] in Arterial blood non-numeric results) [facility] System by Pulse oximetry Respiratory rate 18 0 - 999 Above high normal [facility] 73 0 - 999 Normal (applies to 73 [facility] non-numeric results) [facility] Body surface area 2.1 m2 2.1 m2 [facility] ore Derived from Health Syste m formula Body mass index 24.3 kg/m2 24.3 kg/m2 [facility] ([facility] [Ratio[facility] Body weight 86.18 kg 86.18 kg [facility] Body height 187.96 cm 187.96 cm [facility] Patient Treatment Plan of Care Planned Activity Planned Date Details Description Data Source (s) Erythromycin 0.005 MG/MG 10/26/2019 12:25:15 [facility] Ophthalmic Ointment EST System
[2020-06-06] MEDS: THIAMINE HCL 100 MG TABLET (FP) PO SCH (22:20)
[2020-06-06] MEDS: chlordiazePOXIDE HCL 25 MG CAPSULE PO SCH (22:23)
[2020-06-06] MEDS: MELATONIN 5 MG TABLETS PO SCH (22:26)
[2020-06-07] MEDS: chlordiazePOXIDE HCL 25 MG CAPSULE PO SCH ×4 (05:30→22:33)
[2020-06-07] MEDS ORDERED: METHADONE HCL 5 MG TABLET (FOR DETOX USE ONLY) ONE (09:28)
[2020-06-07] MEDS ORDERED: METHADONE HCL 10 MG TABLET (FOR DETOX USE ONLY) ONE (09:28)
--- NOTE | 2020-06-07 09:28 | CONSULT ---
[facility] Psychiatric Consult - Data Date of interview: 06/07/20 Admission source: [facility] Identifying data: Patient is a 40 year old single male, without children, unemployed, homeless, and is not currently receiving SSI. This is patient's first admission to detox at [facility]. Patient admitted to for alcohol and opiate dependence. Substance Abuse History: - Smoking History. Smoking history: Current every day smoker. Have you smoked in the past 12 months: Yes. Aproximately how many cigarettes per day: 20. - Alcohol/Substance Use. Hx Alcohol Use: Yes. History of Substance Use: reports: Cocaine, Heroin Medical History: Seizures (alcohol related),Hep C Psychiatric History: Interview conducted bedside. Mr. Bales's first psychiatric contact was as a child due to behavior disturbances. Patient states that he was diagnosed with ADHD and treated with adderall. Mr. Lobo reports most recently seeing a psychiatrist 6-7 months ago in [place] who prescribed him adderall + wellbutrin. Mr. Joseph last took medications before COVID-19. Patient denies history psychiatric hospitalizations and suicide attempt. At present patient reports difficulty sleeping. Physical/Sexual Abuse/Trauma History: denies. Mental Status Exam - Mental Status Exam Alert and Oriented to: Time, Place, Person Cognitive Function: Good Patient Appearance: Well Groomed Mood: Withdrawn Affect: Mood Congruent Patient Behavior: Fatigued, Cooperative Speech Pattern: Appropriate Voice Loudness: Normal Thought Process: Goal Oriented Thought Disorder: Not Present Hallucinations: Denies Suicidal Ideation: Denies Homicidal Ideation: Denies Insight/Judgement: Poor Sleep: Poorly Appetite: Fair Muscle strength/Tone: Normal Gait/Station: Normal Psychiatric Findings - Problem List ([place] 1, 2,3) (1) History of ADHD Status: Chronic (2) Alcohol dependence with withdrawal Status: Acute (3) Opioid dependence with withdrawal Status: Acute (4) Nicotine dependence Status: Chronic (5) Substance-induced sleep disorder Status: Acute - Initial Treatment Plan Initial Treatment Plan: Psychoeducation provided. Rehab in progress. Will order Belsomra 10mg HS PRN. Benefits and side effects. Verbal consent given.
[2020-06-07] MEDS ORDERED: METHADONE (DETOX) 20 MG, METHADONE (DETOX) 5 MG PO ONE (10:00)
[2020-06-07 10:10] LABS: HEMATOCRIT 37.9 % (35.4-49); HEMOGLOBIN 12.4 GM/dL (11.7-16.9); MCH 30.6 pg (25.7-33.7); MCHC 32.8 g/dl (32.0-35.9); MEAN CELL VOLUME 93.1 fl (80-96); MEAN PLT VOLUME 8.9 fl (7.5-11.1); PLATELET COUNT 201 K/MM3 (134-434); RBC 4.07 M/mm3 (4.00-5.60); RDW 13.2 % (11.9-15.9); WHITE BLOOD COUNT 6.9 K/mm3 (4.0-10.0)
[2020-06-07] MEDS: PRENATAL VITAMINS W/ FOLIC ACID TABLET (FP) PO SCH (10:22)
[2020-06-07] MEDS: NICOTINE 7 MG/24 HOURS TOPICAL PATCH TD SCH (10:22)
[2020-06-07 10:26] LABS: ALBUMIN 2.8 g/dl (3.4-5.0); BILIRUBIN,TOTAL 0.6 mg/dL (0.2-1); BLOOD UREA NITROGEN 16.4 mg/dL (7-18); CALCIUM 8.9 mg/dL (8.5-10.1); POTASSIUM 4.3 mmol/L (3.5-5.1); TOT PROT 6.7 g/dl (6.4-8.2)
[2020-06-07 10:29] LABS: CREATININE 0.9 mg/dL (0.55-1.3)
[2020-06-07] MEDS ORDERED: FLU VACCINE (FLULAVAL) PF 60 MCG/0.5 ML SYRINGE 2020-2021 IM ONE (12:00)
--- NOTE | 2020-06-07 12:03 | PN ---
[facility] CIWA - CIWA Score Nausea/Vomitin-No Nausea/No Vomiting Muscle Tremors: 3 Anxiety: 3 Agitation: 3 Paroxysmal Sweats: 3 Orientation: 0-Oriented Tacttile Disturbances: 0-None Auditory Disturbances: 0-None Visual Disturbances: 0-None Headache: 0-None Present CIWA-Ar Total Score: 12 [facility] COWS - Scale Resting Pulse: 0= [place] 80 or Below Sweatin= Chills/Flushing Restless Observation: 1= Difficult to Sit Still Pupil Size: 0= Normal to Room Light Bone or Joint Aches: 1= Mild Discomfort Runny Nose/ Eye Tearin= Nasal Congestion GI Upset > 30mins: 0= None Tremor Observation of Outstretched Hands: 1= Tremor [place], Not Seen Yawning Observation: 1= 1-2x During Session Anxiety or Irritability: 1=Feels Anxious/Irritable Goose Flesh Skin: 3=Piloerection COWS Score: 10 [facility] Progress Note (SOAP) Subjective: sweats shakes interrupted sleep agitation body aches nausea Objective: 06/07/20 12:04 Vital Signs Temperature 97.1 F L 06/07/20 08:48 Pulse Rate 77 06/07/20 08:48 Respiratory Rate 18 06/07/20 08:48 Blood Pressure 104/59 L 06/07/20 08:48 O2 Sat by Pulse Oximetry (%) 99 06/07/20 08:48 Laboratory Tests 06/06/20 06/07/20 06/07/20 07:00 07:00 07:00 WBC 6.9 RBC 4.07 Hgb 12.4 Hct 37.9 MCV 93.1 MCH 30.6 MCHC 32.8 RDW 13.2 Plt Count 201 MPV 8.9 Sodium 142 Potassium 4.3 Chloride 108 H Carbon Dioxide 31 Anion Gap 3 L BUN 16.4 Creatinine 0.9 Est GFR (CKD-EPI)AfAm 125.13 Est GFR (CKD-EPI)NonAf 107.97 Random Glucose 86 Calcium 8.9 Total Bilirubin 0.6 AST 64 H ALT 115 H Alkaline Phosphatase 75 Total Protein 6.7 Albumin 2.8 L Syphilis Serology Non-reactive labs noted aaox3 ambulating no acute distress Assessment: 06/07/20 12:05 withdrawals Plan: continue detox increase fluids zofran sl prn
--- NOTE | 2020-06-07 13:39 | EKG ---
Test Reason : Blood Pressure : / mmHG Vent. Rate : 076 BPM Atrial Rate : 076 BPM P-R Int : 144 ms QRS Dur : 098 ms QT Int : 418 ms P-R-T Axes : 055 013 039 degrees QTc Int : 470 ms NORMAL SINUS RHYTHM INFERIOR INFARCT , AGE UNDETERMINED ABNORMAL ECG NO PREVIOUS ECGS AVAILABLE Confirmed by DIANNA KELLEY, MIGUEL ([id number]) on 06/07/2020 1:38:52 PM Referred By: Brandon Doll Confirmed By:MIGUEL BUSTAMANTE MD
[2020-06-07] MEDS: chlordiazePOXIDE HCL 25 MG CAPSULE PO PRN (19:12)
[2020-06-07] MEDS: THIAMINE HCL 100 MG TABLET (FP) PO SCH (22:33)
[2020-06-07] MEDS: SUVOREXANT 10 MG TABLET PO PRN (22:35)
[2020-06-07] MEDS: MELATONIN 5 MG TABLETS PO SCH (23:36)
[2020-06-08] MEDS: chlordiazePOXIDE HCL 25 MG CAPSULE PO SCH ×4 (05:30→22:16)
[2020-06-08] MEDS ORDERED: METHADONE HCL 10 MG TABLET (FOR DETOX USE ONLY) PO ONE (10:00)
--- NOTE | 2020-06-08 10:15 | PN ---
[facility] CIWA - CIWA Score Nausea/Vomitin-Mild Nausea/No Vomiting Muscle Tremors: 2 Anxiety: 2 Agitation: 2 Paroxysmal Sweats: No Perspiration Orientation: 1-Uncertain about Date Tacttile Disturbances: 0-None Auditory Disturbances: 0-None Visual Disturbances: 0-None Headache: 2-Mild CIWA-Ar Total Score: 10 [facility] COWS - Scale Resting Pulse: 1= [place] 81-100 Sweatin= No chills or Flushing Restless Observation: 0= Sits Still Pupil Size: 1= Pupils >than Normal Bone or Joint Aches: 2= Severe Diffuse Aches Runny Nose/ Eye Tearin= Nasal Congestion GI Upset > 30mins: 1= Stomach Cramp Tremor Observation of Outstretched Hands: 2= Slight Tremor Visible Yawning Observation: 1= 1-2x During Session Anxiety or Irritability: 2=Irritable/Anxious Goose Flesh Skin: 0=Smooth Skin COWS Score: 11 S Progress Note (SOAP) Subjective: alert,irritable,anxious,interrupted sleep,tremor,pain in the body and back,nausea,stomach cramp Objective: 06/08/20 10:13 Vital Signs Temperature 96.8 F L 06/08/20 09:33 Pulse Rate 84 06/08/20 09:33 Respiratory Rate 18 06/08/20 09:33 Blood Pressure 112/59 L 06/08/20 09:33 O2 Sat by Pulse Oximetry (%) 97 06/08/20 09:33 Laboratory Last Values WBC 6.9 K/mm3 (4.0-10.0) 06/07/20 07:00 RBC 4.07 M/mm3 (4.00-5.60) 06/07/20 07:00 Hgb 12.4 GM/dL (11.7-16.9) 06/07/20 07:00 Hct 37.9 % (35.4-49) 06/07/20 07:00 MCV 93.1 fl (80-96) 06/07/20 07:00 MCH 30.6 pg (25.7-33.7) 06/07/20 07:00 MCHC 32.8 g/dl (32.0-35.9) 06/07/20 07:00 RDW 13.2 % (11.9-15.9) 06/07/20 07:00 Plt Count 201 K/MM3 (134-434) 06/07/20 07:00 MPV 8.9 fl (7.5-11.1) 06/07/20 07:00 Sodium 142 mmol/L (136-145) 06/07/20 07:00 Potassium 4.3 mmol/L (3.5-5.1) 06/07/20 07:00 Chloride 108 mmol/L (98-107) H 06/07/20 07:00 Carbon Dioxide 31 mmol/L (21-32) 06/07/20 07:00 Anion Gap 3 MMOL/L (8-16) L 06/07/20 07:00 BUN 16.4 mg/dL (7-18) 06/07/20 07:00 Creatinine 0.9 mg/dL (0.55-1.3) 06/07/20 07:00 Est GFR (CKD-EPI)AfAm 125.13 06/07/20 07:00 Est GFR (CKD-EPI)NonAf 107.97 06/07/20 07:00 Random Glucose 86 mg/dL (74-106) 06/07/20 07:00 Calcium 8.9 mg/dL (8.5-10.1) 06/07/20 07:00 Total Bilirubin 0.6 mg/dL (0.2-1) 06/07/20 07:00 AST 64 U/L (15-37) H 06/07/20 07:00 ALT 115 U/L (13-61) H 06/07/20 07:00 Alkaline Phosphatase 75 U/L (45-117) 06/07/20 07:00 Total Protein 6.7 g/dl (6.4-8.2) 06/07/20 07:00 Albumin 2.8 g/dl (3.4-5.0) L 06/07/20 07:00 Syphilis Serology Non-reactive (NONREACTIVE) 06/06/20 07:00 Assessment: 06/08/20 10:14 withdrawal symptom Plan: continue detox methadone and librium regimen
[2020-06-08] MEDS: NICOTINE 7 MG/24 HOURS TOPICAL PATCH TD SCH (10:29)
[2020-06-08] MEDS: PRENATAL VITAMINS W/ FOLIC ACID TABLET (FP) PO SCH (10:29)
[2020-06-08] MEDS: hydrOXYzine PAMOATE 25 MG CAPSULE (FP) PO PRN (10:32)
[2020-06-08] MEDS: METHOCARBAMOL 500 MG TABLET PO PRN ×2 (11:58→19:32)
[2020-06-08] MEDS: chlordiazePOXIDE HCL 25 MG CAPSULE PO PRN (19:32)
[2020-06-08] MEDS: MELATONIN 5 MG TABLETS PO SCH (22:16)
[2020-06-08] MEDS: THIAMINE HCL 100 MG TABLET (FP) PO SCH (22:16)
[2020-06-08] MEDS: SUVOREXANT 10 MG TABLET PO PRN (23:51)
[2020-06-09] MEDS ORDERED: chlordiazePOXIDE HCL 10 MG CAPSULE PO PRN
[2020-06-09] MEDS: chlordiazePOXIDE HCL 10 MG CAPSULE PO SCH ×2 (06:15→10:10)
[2020-06-09] MEDS ORDERED: METHADONE HCL 10 MG TABLET (FOR DETOX USE ONLY) ONE (09:45)
[2020-06-09] MEDS ORDERED: METHADONE HCL 5 MG TABLET (FOR DETOX USE ONLY) ONE (09:45)
[2020-06-09] MEDS ORDERED: METHADONE (DETOX) 10 MG, METHADONE (DETOX) 5 MG PO ONE (10:00)
[2020-06-09] MEDS: PRENATAL VITAMINS W/ FOLIC ACID TABLET (FP) PO SCH (10:10)
[2020-06-09] MEDS: hydrOXYzine PAMOATE 25 MG CAPSULE (FP) PO PRN (10:10)
[2020-06-09] MEDS: NICOTINE 7 MG/24 HOURS TOPICAL PATCH TD SCH (10:10)
[2020-06-09] MEDS: NICOTINE POLACRILEX 2 MG GUM BUC PRN ×2 (10:11→13:29)
[2020-06-09] MEDS: METHOCARBAMOL 500 MG TABLET PO PRN ×2 (10:14→17:18)
[2020-06-09] MEDS: diazePAM 5 MG TABLET PO PRN ×2 (13:28→19:29)
[2020-06-09] MEDS: diazePAM 5 MG TABLET PO SCH ×2 (17:18→21:59)
--- NOTE | 2020-06-09 18:31 | PN ---
S CIWA - CIWA Score Nausea/Vomitin-No Nausea/No Vomiting Muscle Tremors: None Anxiety: 3 Agitation: 3 Paroxysmal Sweats: 3 Orientation: 0-Oriented Tacttile Disturbances: 2-Mild Itch/Numbness/Burn Auditory Disturbances: 0-None Visual Disturbances: 1-Very Mild Sensitivity Headache: 0-None Present CIWA-Ar Total Score: 12 [facility] COWS - Scale Resting Pulse: 2= [place] 101-120 Sweatin= Chills/Flushing Restless Observation: 1= Difficult to Sit Still Pupil Size: 0= Normal to Room Light Bone or Joint Aches: 2= Severe Diffuse Aches Runny Nose/ Eye Tearin= None GI Upset > 30mins: 0= None Tremor Observation of Outstretched Hands: 0= None Yawning Observation: 1= 1-2x During Session Anxiety or Irritability: 2=Irritable/Anxious Goose Flesh Skin: 0=Smooth Skin COWS Score: 9 S Progress Note (SOAP) Subjective: Body Aches, Aches, Sweating, Anxious, Restless, Fatigue, Interrupted Sleep. Objective: Patient A & O X 3, Observed Ambulating on Detox Unit Unassisted. In No Acute Distress. 06/09/20 18:27 Vital Signs Temperature 97.1 F L 06/09/20 17:05 Pulse Rate 107 H 06/09/20 17:05 Respiratory Rate 18 06/09/20 17:05 Blood Pressure 117/72 06/09/20 17:05 O2 Sat by Pulse Oximetry (%) 100 06/09/20 17:05 Laboratory Tests 06/06/20 06/06/20 06/07/20 07:00 21:50 07:00 WBC 6.9 RBC 4.07 Hgb 12.4 Hct 37.9 MCV 93.1 MCH 30.6 MCHC 32.8 RDW 13.2 Plt Count 201 MPV 8.9 Sodium Potassium Chloride Carbon Dioxide Anion Gap BUN Creatinine Est GFR (CKD-EPI)AfAm Est GFR (CKD-EPI)NonAf Random Glucose Calcium Total Bilirubin AST ALT Alkaline Phosphatase Total Protein Albumin Syphilis Serology Non-reactive COVID-19 (MAR[facility]E) Not detected 06/07/20 07:00 WBC RBC Hgb Hct MCV MCH MCHC RDW Plt Count MPV Sodium 142 Potassium 4.3 Chloride 108 H Carbon Dioxide 31 Anion Gap 3 L BUN 16.4 Creatinine 0.9 Est GFR (CKD-EPI)AfAm 125.13 Est GFR (CKD-EPI)NonAf 107.97 Random Glucose 86 Calcium 8.9 Total Bilirubin 0.6 AST 64 H ALT 115 H Alkaline Phosphatase 75 Total Protein 6.7 Albumin 2.8 L Syphilis Serology COVID-19 (MARILEE) Lab Results noted. Assessment: 06/09/20 18:28 WITHDRAWAL SYMPTOMS. ELEVATED ALT LEVEL. ELEVATED AST LEVEL. 06/09/20 18:29 Plan: Continue Detox. Increase Daily Oral Water Intake. Patient reports that he finds that current Librium Detox Medication regimen has not been that effective for relief of Withdrawal symptoms. At Patient's request, Librium Detox Medication regimen changed to Valium Detox Regimen.
--- NOTE | 2020-06-09 19:15 | PN ---
[facility] Progress Note Note: Psychiatric nurse practitioner note: Patient reports difficulty sleeping despite accepting belsomra 10mg HS. Will d/c Belasomra 10mg. Will oder belsomra 15mg HS. Verbal consent given.
[2020-06-09] MEDS ORDERED: SUVOREXANT 10 MG TABLET PO PRN (22:00)
[2020-06-09] MEDS: THIAMINE HCL 100 MG TABLET (FP) PO SCH (22:00)
[2020-06-09] MEDS: MELATONIN 5 MG TABLETS PO SCH (22:02)
[2020-06-10] MEDS: diazePAM 5 MG TABLET PO PRN (01:43)
[2020-06-10] MEDS ORDERED: chlordiazePOXIDE HCL 10 MG CAPSULE PO SCH (05:00)
[2020-06-10] MEDS ORDERED: diazePAM 5 MG TABLET PO ONE (06:00)
[2020-06-10] MEDS: diazePAM 5 MG TABLET PO SCH ×2 (06:41→09:34)
[2020-06-10] MEDS: PRENATAL VITAMINS W/ FOLIC ACID TABLET (FP) PO SCH (09:35)
[2020-06-10] MEDS: METHOCARBAMOL 500 MG TABLET PO PRN (09:37)
[2020-06-10] MEDS: NICOTINE 7 MG/24 HOURS TOPICAL PATCH TD SCH (09:38)
[2020-06-10 09:57] VITALS: BP 121/77; PULSE 100; TEMP 96.6
[2020-06-10] MEDS ORDERED: METHADONE HCL 10 MG TABLET (FOR DETOX USE ONLY) PO ONE (10:00)
--- NOTE | 2020-06-10 10:46 | DS ---
[facility] Detox Discharge Summary Admission Date: 06/06/20 Discharge Date: 06/10/20 - History Present History: Alcohol Dependence, Cocaine Dependence, Opioid Dependence, Sedative Dependence Additional Comments: Patient for discharge tomorrow but wants to leave now,patient stable for discharge this morning Alert and oriented x3, in no acute respiratory distress. Full ROM, ambulating in unit without any assistance. Encouraged to followup with aftercare. Pertinent Past History: History of Hep c, cocaine, xanax, Opioid, alcohol and nicotine use disorder. - Physical Exam Results Vital Signs: Vital Signs Temperature 96.6 F L 06/10/20 09:28 Pulse Rate 100 H 06/10/20 09:28 Respiratory Rate 18 06/10/20 09:28 Blood Pressure 121/77 06/10/20 09:28 O2 Sat by Pulse Oximetry (%) 100 06/10/20 09:28 Vital Signs 06/10/20 06/10/20 06:19 09:28 Temperature 96.9 F L 96.6 F L Pulse Rate 81 100 H Respiratory 20 18 Rate Blood Pressure 99/57 L 121/77 O2 Sat by Pulse 99 99 Oximetry (%) Laboratory Last Values WBC 6.9 K/mm3 (4.0-10.0) 06/07/20 07:00 RBC 4.07 M/mm3 (4.00-5.60) 06/07/20 07:00 Hgb 12.4 GM/dL (11.7-16.9) 06/07/20 07:00 Hct 37.9 % (35.4-49) 06/07/20 07:00 MCV 93.1 fl (80-96) 06/07/20 07:00 MCH 30.6 pg (25.7-33.7) 06/07/20 07:00 MCHC 32.8 g/dl (32.0-35.9) 06/07/20 07:00 RDW 13.2 % (11.9-15.9) 06/07/20 07:00 Plt Count 201 K/MM3 (134-434) 06/07/20 07:00 MPV 8.9 fl (7.5-11.1) 06/07/20 07:00 Sodium 142 mmol/L (136-145) 06/07/20 07:00 Potassium 4.3 mmol/L (3.5-5.1) 06/07/20 07:00 Chloride 108 mmol/L (98-107) H 06/07/20 07:00 Carbon Dioxide 31 mmol/L (21-32) 06/07/20 07:00 Anion Gap 3 MMOL/L (8-16) L 06/07/20 07:00 BUN 16.4 mg/dL (7-18) 06/07/20 07:00 Creatinine 0.9 mg/dL (0.55-1.3) 06/07/20 07:00 Est GFR (CKD-EPI)AfAm 125.13 06/07/20 07:00 Est GFR (CKD-EPI)NonAf 107.97 06/07/20 07:00 Random Glucose 86 mg/dL (74-106) 06/07/20 07:00 Calcium 8.9 mg/dL (8.5-10.1) 06/07/20 07:00 Total Bilirubin 0.6 mg/dL (0.2-1) 06/07/20 07:00 AST 64 U/L (15-37) H 06/07/20 07:00 ALT 115 U/L (13-61) H 06/07/20 07:00 Alkaline Phosphatase 75 U/L (45-117) 06/07/20 07:00 Total Protein 6.7 g/dl (6.4-8.2) 06/07/20 07:00 Albumin 2.8 g/dl (3.4-5.0) L 06/07/20 07:00 Syphilis Serology Non-reactive (NONREACTIVE) 06/06/20 07:00 COVID-19 (MARILEE) Not detected (Not Detected) 06/06/20 21:50 Labs noted. Pertinent Admission Physical Exam Findings: Withdrawal symptoms. - Treatment Hospital Course: Detox Protocol Followed, Detoxed Safely, Responded well, Discharged Condition Good - Diagnosis (1) Opioid dependence with withdrawal Current Visit: Yes Status: Acute (2) Alcohol dependence with withdrawal Current Visit: Yes Status: Acute (3) Nicotine dependence Current Visit: Yes Status: Chronic - AMA Did Patient Leave Against Medical Advice: Yes CIWA Score - CIWA Score Nausea/Vomitin-No Nausea/No Vomiting Muscle Tremors: None Anxiety: 1-Mildly Anxious Agitation: 0-Normal Activity Paroxysmal Sweats: 2 Orientation: 0-Oriented Tacttile Disturbances: 0-None Auditory Disturbances: 0-None Visual Disturbances: 0-None Headache: 0-None Present CIWA-Ar Total Score: 3 COWS (PN) - Opiate Withdrawal Resting Pulse: 1= [place] 81-100 Sweatin= No chills or Flushing Restless Observation: 0= Sits Still Pupil Size: 0= Normal to Room Light Bone or Joint Aches: 1= Mild Discomfort Runny Nose/ Eye Tearin= None GI Upset > 30mins: 0= None Tremor Observation of Outstretched Hands: 0= None Yawning Observation: 0= None Anxiety or Irritability: 1=Feels Anxious/Irritable Goose Flesh Skin: 0=Smooth Skin COWS Score: 3
[2020-06-10] MEDS: NICOTINE POLACRILEX 2 MG GUM BUC PRN (10:48)
[2020-06-11] MEDS ORDERED: chlordiazePOXIDE HCL 10 MG CAPSULE PO ONE (05:00)
[2020-06-11] MEDS ORDERED: METHADONE HCL 5 MG TABLET (FOR DETOX USE ONLY) PO ONE (06:00)
== END 2020-06-10 11:33 | disposition home or self-care (01) | DRG 773 ==
LOC: YASAS 17:16 → Y6N 21:35
PROVIDERS: ADMIT Allergy & Immunology; ATTEND Allergy & Immunology
PROC: HZ2ZZZZ Detoxification Services for Substance Abuse Treatment (ICD-10-PCS; principal; 2020-06-06)
DX: F11.23 Opioid dependence with withdrawal (principal); F10.230 Alcohol dependence with withdrawal, uncomplicated; F13.20 Sedative, hypnotic or anxiolytic dependence, uncomplicated; F17.210 Nicotine dependence, cigarettes, uncomplicated; F19.282 Other psychoactive substance dependence with psychoactive substance-induced sleep disorder; G40.509 Epileptic seizures related to external causes, not intractable, without status epilepticus; R74.01 Elevation of levels of liver transaminase levels; Z86.59 Personal history of other mental and behavioral disorders; Z56.0 Unemployment, unspecified; Z59.0 Homelessness
CPT/HCPCS: 36415; 80053; 85027; 86780; 93005; 93010; C9803; J0735; U0003